=== PATIENT | female | born 1990 | race Caucasian/White ===

== ENCOUNTER 2016-12-15 02:15 | Outpatient (CLI) | payer MEDICAID, OTHER ==
[~2016-12-15] VITALS: Ht 167.6 cm; Wt 69.3 kg
[2016-12-15 02:32] VITALS: Ht 167.6 cm; Wt 69.3 kg
[2016-12-15 02:34] VITALS: BP 111/63; PULSE 65; RESP 18
[2016-12-15] MEDS ORDERED: PREN-93 PO (02:36)
--- NOTE | 2016-12-15 03:05 | PN ---
Date/Time of Note Date/Time of Note DATE: 12/15/16 TIME: 03:03 OB Subjective Subjective Subjective patient ate chile and had some epigastric pain, now resolved OB Objective Objective Objective Nml VS abdomen- gravid, n/t FHT- pos FH Abdomen: WNL OB Assessment/Plan Other Assessment: 26 yo P1 @ 24 wks w/ epigastric pain, now resolved reassuring status Other plan: d/c home f/u MONICA Escalera MD Dec 15, 2016 03:04
--- NOTE | 2016-12-15 03:26 | TRIAGE ---
OB Triage Datetime Report Generated by CPN: 12/15/2016 03:26 Datetime: 12/15/2016 03:00 Labor Evaluation Frequency: IRREGULAR Monitor Mode: External Duration (sec)2399: 90 Quality: Mild Pattern: Normal: <= 5 Contractions in 10 Minutes Resting Tone [place]: Relaxed Heart Rate FHR Baseline Rate: 135 Monitor Mode: External US FHR Baseline Changes: No Baseline Change Variability: Moderate 6-25 bpm Accelerations: 10X10 Decelerations: None Category: Category I Datetime: 12/15/2016 02:38 EGA: 24.5 Datetime: 12/15/2016 02:37 EGA: 24.5 Datetime: 12/15/2016 02:30 Stage of : OB Triage Time of Arrival: 12/15/2016 02:10 Arrived By: Wheelchair Arrived From: Home Chief Complaint: ABDONINAL APIN Movement: Present Contractions: Denies/Absent Rupture of Membranes: Denies Vaginal Bleeding: None Vaginal Discharge: Denies Recent Sexual Intercouse: Denies Abdominal Trauma: Not Applicable Patient Complaints: None Time Provider Notified: 12/15/2016 02:53 Provider Notified: DR VAUGHN Initial Plan: CALL MD Boaz Maternal Assessment Level of Consciousness: Fully Conscious DTR's/Clonus: DTRs 2+; No Clonus Headache: Denies Blurred Vision: No Respiratory Effort: Unlabored; Regular Rhythm; Equal Expansion Breath Sounds, Left: Clear and Equal Breath Sounds, Right: Clear and Equal Nausea/Vomiting: Denies RUQ Epigastric Pain: Denies Lower Extremities Edema: None Degree: None Upper Extremities Edema: None Degree: None Facial Edema: None Temperature Route: Oral Fall Risk Assessment History of Falling: (0) No Secondary Diagnosis: (0) No Ambulatory Aid: (0) Bedrest/Nurse Assist IV Therapy: (0) No Gait: (0) Normal/Bedrest/Immobile Mental Status: (0) Oriented to Own Ability Fall Score: 0 Fall Risk Score Definition: No Risk: No action required Monitor Mode: External Monitor Mode: External US Pain Assessment Pain Presence: Intermittent
== END 2016-12-15 03:13 | disposition home or self-care (01) ==
LOC: OBT 02:15 → L-D 02:30 → OBT 03:13
PROVIDERS: ATTEND Obstetrics & Gynecology
DX: O26.892 Other specified pregnancy related conditions, second trimester (principal); R10.13 Epigastric pain; Z3A.24 24 weeks gestation of pregnancy
CPT/HCPCS: G0463

== ENCOUNTER 2017-04-04 10:16 | Inpatient (IN) | payer MEDICAID, OTHER ==
[~2017-04-04] VITALS: Ht 167.6 cm; Wt 75.6 kg
[~2017-04-04 10:16] MED LIST: PREN-93 PO
[2017-04-04 10:29] VITALS: BP 116/56; PULSE 69; RESP 18; Ht 167.6 cm; Wt 75.6 kg
--- NOTE | 2017-04-04 11:27 | RADRPT ---
PROCEDURE: Obstetrical ultrasound for biophysical profile CLINICAL INDICATION: Biophysical profile. . TECHNIQUE: Obstetrical ultrasound of the uterus for biophysical profile. Transabdominal views are obtained. COMPARISON: None FINDINGS: Single intrauterine gestation. Presentation: Cephalic. Placenta: Anterior. No evidence of placental abruption. No evidence of placenta previa. breathing movement = 2/2 tone = 2/2 motion = 2/2 LATRELL = 2/2 LATRELL = 6.3 cm heart rate: 129 beats per minute IMPRESSION: Single intrauterine gestation. Biophysical profile 03/27 Low normal amniotic fluid index. RPTAT: AADD .Marek Calhoun MD, MD Date Time Electronically viewed and signed by .Marek Calhoun MD, on 04/04/2017 11:26 .B/
--- NOTE | 2017-04-04 13:30 | TRIAGE ---
OB Triage Datetime Report Generated by CPN: 04/04/2017 13:30 Datetime: 04/04/2017 12:04 Vaginal Exam Dilatation (cms): 2.0 Effacement (%): 50 Station: -3 Exam By: KHEMANI Vaginal Bleeding: None Cervix, Consistency: Moderate Cervix, Position: Posterior Presentation 'A': Cephalic Datetime: 04/04/2017 12:00 Labor Evaluation Monitor Mode: External Heart Rate Monitor Mode: External US Datetime: 04/04/2017 10:52 Vaginal Exam Dilatation (cms): 2.0 Effacement (%): 50 Station: -2 Exam By: henrry Vaginal Bleeding: None Cervix, Consistency: Moderate Cervix, Position: Posterior Datetime: 04/04/2017 10:26 Assessment Type: Triage Maternal Assessment Level of Consciousness: Fully Conscious DTR's/Clonus: DTRs 2+; No Clonus Headache: Denies Blurred Vision: No Respiratory Effort: Unlabored; Regular Rhythm; Equal Expansion Breath Sounds, Left: Clear and Equal Breath Sounds, Right: Clear and Equal Nausea/Vomiting: Denies RUQ Epigastric Pain: Denies Lower Extremities Edema: None Degree: None Upper Extremities Edema: None Degree: None Facial Edema: None Fall Risk Assessment History of Falling: (0) No Secondary Diagnosis: (0) No Ambulatory Aid: (0) Bedrest/Nurse Assist IV Therapy: (0) No Gait: (0) Normal/Bedrest/Immobile Mental Status: (0) Oriented to Own Ability Fall Score: 0 Fall Risk Score Definition: No Risk: No action required Datetime: 04/04/2017 10:21 Time of Arrival: 04/04/2017 10:10 EGA: 40.3 Arrived By: Ambulatory Arrived From: Home Chief Complaint: PT HERE C/O SPOTTING Movement: Present Contractions: Denies/Absent Rupture of Membranes: Denies Vaginal Discharge: Denies Recent Sexual Intercouse: Denies Abdominal Trauma: Not Applicable Patient Complaints: None Time Provider Notified: 04/04/2017 10:35 Provider Notified: ARDALAN Initial Plan: SVE, EFM, ambulate Datetime: 04/04/2017 10:20 Labor Evaluation Monitor Mode: External Heart Rate Monitor Mode: External US Datetime: 12/15/2016 02:38 EGA: 24.5 Datetime: 12/15/2016 02:37 EGA: 24.5 Datetime: 12/15/2016 02:30 Chief Complaint: PT C/O UPPER ABDOMINAL PAIN THAT STARTED WHEN SHE ATE SOMETHING SPICY @ 1900, PT STATES SHE NO LONG FEELS ANY DISCOMFORT Fall Score: 0 Fall Risk Score Definition: No Risk: No action required
[2017-04-04] MEDS ORDERED: LACTATED RINGER'S 1,000 ML IV PRN (14:27)
[2017-04-04] MEDS ORDERED: IBUPROFEN 600 MG TAB PO PRN (14:30)
[2017-04-04] MEDS ORDERED: MISOPROSTOL 200 MCG TAB PR PRN (14:30)
[2017-04-04] MEDS ORDERED: METHYLERGONOVINE 0.2 MG INJ IM PRN (14:30)
[2017-04-04] MEDS ORDERED: OXYTOCIN 30 UNITS/LR 500 ML IV SCH ×3 (14:30)
[2017-04-04] MEDS ORDERED: LIDOCAINE 1% (MPF) 30 ML INJ INJ PRN (14:30)
[2017-04-04] MEDS ORDERED: BUTORPHANOL 2 MG INJ IV PRN (14:30)
[2017-04-04] MEDS ORDERED: OXYTOCIN 30 UNITS/LR 500 ML IV PRN (14:30)
[2017-04-04] MEDS ORDERED: AMPICILLIN 2 GM/NS (PMX) 100 ML IV ONE (14:30)
[2017-04-04] MEDS ORDERED: CARBOPROST 250 MCG INJ IM PRN (14:30)
[2017-04-04] MEDS: LACTATED RINGER'S 1,000 ML IV SCH ×2 (14:49→22:42)
[2017-04-04 15:00] LABS: BASOPHILS % 0.3 % (0.0-2.0); EOSINOPHILS % 0.3 % (0.0-7.0); HEMATOCRIT 39.2 % (37.0-47.0); HEMOGLOBIN 13.5 g/dl (12.0-16.0); LYMPHOCYTES # 1.2 10^3/ul (0.8-2.9); LYMPHOCYTES % 11.6 % (15.0-51.0); MEAN CORPUSCULAR HEMOGLOBIN 32.3 pg (29.0-33.0); MEAN CORPUSCULAR HGB CONC 34.4 g/dl (32.0-37.0); MEAN CORPUSCULAR VOLUME 93.8 fl (82.0-101.0); MEAN PLATELET VOLUME 10.6 fl (7.4-10.4); MONOCYTE # 0.6 10^3/ul (0.3-0.9); MONOCYTES % 6.2 % (0.0-11.0); NEUTROPHILS % 81.4 % (39.0-77.0); PLATELET COUNT 159 10^3/UL (140-415); RED BLOOD COUNT 4.18 10^6/ul (4.20-5.40); RED CELL DISTRIBUTION WIDTH 12.9 % (11.5-14.5); WHITE BLOOD COUNT 10.1 10^3/ul (4.8-10.8)
[2017-04-04 15:20] LABS: INR 0.97; PROTIME 12.9 Sec (12.2-14.2)
[2017-04-04 15:21] LABS: PARTIAL THROMBOPLASTIN TIME 27.7 Sec (25.0-35.0)
[2017-04-04] MEDS: AMPICILLIN 1 GM/NS (PMX) 50 ML IV SCH ×2 (17:57→21:44)
--- NOTE | 2017-04-04 22:44 | HP ---
Date/Time of Note Date/Time of Note DATE: 04/04/17 TIME: 22:39 OB - History Hx of Present Free Text/Dictation April 04, 2017 : 2 Para: 1 Therapeutic : 0 Care: Good Care Obstetrical Complications: None Medical Complications: None Other Concerns: 26-year-old G1 2 P1 with IUP at 40+ weeks, postdates presented due to feeling uterine contractions. She was noted to has a favourable cerivx.3/50/-2 Her LATRELL was borderline 6.3. Discussed with the patient regarding induction versus expectant management with repeat LATRELL after 24 hours hydration tomorrow and proceed with induction at 41 week. Patient desires to proceed with induction now Patient denied any vaginal bleeding, leaking of fluid or decreased movement. Her NST was category 1 Past Family/Social History * Past Medical, Surgical, Family and Obstetric Histories reviewed from chart. Blood Type: O+ Rubella: not immune RPR/VDRL: Negative GBS Status: Negative HBsAG: Negative OB Admission Exam Vital Signs Vital Signs Vital Signs Date Time Temp Pulse Resp B/P Pulse Ox O2 Delivery O2 Flow Rate FiO2 04/04/17 10:29 98.5 69 18 116/56 96 Room Air Physical Exam HEENT: WNL Heart: Rhythm Normal Lungs: Clear Abdomen: WNL Extremities: Normal Reflexes: Normal Cervical Dilatation: 1cm Effacement: 0% Heart Rate: 130's Accelerations: Accelerations Present Decelerations: Variable Decelerations Contractions on Admission: 6-10 Minutes Apart Intensity: Moderate Last 72 hours Lab Results CBC & BMP 04/04/17 14:41 OB Assessment/Plan Other Assessment: IUP at 40 weeks + Postdates Borderline low LATRELL Early labor. Discussed regarding admission and labor augmentation due to borderline low LATRELL. Desired to proceed. Risks and benefits discussed. Will admit Start pitocin Anticipate Follow up with labor curve WALDEMAR CLARK MD Apr 04, 2017 22:44
[2017-04-05] MEDS: AMPICILLIN 1 GM/NS (PMX) 50 ML IV SCH (02:00)
--- NOTE | 2017-04-05 02:33 | LDN ---
Date/Time of Note Date/Time of Note DATE: 04/05/17 TIME: 02:30 Delivery Summary Called for delivery due to marternal urge to push. Patient has been on pitocin. noted to progressed rapidly. Placenta Delivered: Spontaneously Meconium: none Perineal laceration: 1 Laceration repair: First-degree perineal and left labial laceration that repaired using 3-0 chromic Anesthesia type: None Estimated blood loss: 200 Sponge & Needle done & correct: Yes All needle counts correct: Yes Any foreign bodies felt in the: No Problems: Delivery Information Sex Infant Sex: male Apgars 1 Minute: 9 5 Minute: 9 Suctioning Nose & mouth suctioned at beth: Yes Delee suction performed: Yes Umbilical Cord Cord presentations: no nuchal cord Cord Blood was obtained: Yes WALDEMAR CLARK MD Apr 05, 2017 02:33
[2017-04-05] MEDS ORDERED: morphine 2 MG INJ IV PRN (03:00)
[2017-04-05] MEDS ORDERED: METHYLERGONOVINE 0.2 MG INJ IM PRN (03:00)
[2017-04-05] MEDS ORDERED: ZOLPIDEM 5 MG TAB PO PRN (03:00)
[2017-04-05] MEDS ORDERED: MISOPROSTOL 200 MCG TAB PR PRN (03:00)
[2017-04-05] MEDS ORDERED: OXYTOCIN 30 UNITS/LR 500 ML IV PRN (03:00)
[2017-04-05] MEDS ORDERED: CARBOPROST 250 MCG INJ IM PRN (03:00)
[2017-04-05] MEDS ORDERED: ONDANSETRON 4 MG INJ IV PRN (03:00)
[2017-04-05] MEDS ORDERED: DIPHENHYDRAMINE 25 MG CAP PO PRN (03:00)
[2017-04-05] MEDS ORDERED: LANOLIN 7 GM TUBE TOP PRN (03:00)
[2017-04-05] MEDS ORDERED: HYDROCODONE/APAP (5/325) TAB PO PRN (03:00)
[2017-04-05] MEDS ORDERED: ACETAMINOPHEN 325 MG TAB PO PRN (03:00)
[2017-04-05] MEDS ORDERED: WITCH HAZEL/GLYCERIN PAD PR PRN (03:00)
[2017-04-05 03:15] VITALS: BP 110/57; PULSE 54; RESP 18
[2017-04-05] MEDS: IBUPROFEN 600 MG TAB PO SCH ×5 (03:42→23:36)
[2017-04-05] MEDS: LACTATED RINGER'S 1,000 ML IV* SCH ×3 (05:57→15:12)
[2017-04-05 08:20] VITALS: BP 105/57; PULSE 64; RESP 16
[2017-04-05] MEDS: SENNA/DOCUSATE NA (8.6MG/50MG) TAB PO SCH ×2 (09:48→21:12)
[2017-04-05 12:20] VITALS: BP 109/60; PULSE 58; RESP 18
--- NOTE | 2017-04-05 12:54 | QN ---
Documentation Comment doing well vss abd soft d/c home next am DEBBIE AVALOS MD Apr 05, 2017 12:54
--- NOTE | 2017-04-05 12:55 | DS ---
Date/Time of Note Date/Time of Note DATE: 04/05/17 TIME: 12:54 Discharge Summary Admission/Discharge Info Admit Date/Time Apr 04, 2017 at 13:56 Discharge Date/Time Discharge Diagnosis term preg. in active labor Patient Condition: Good Hospital Course unremarkable Home Meds Reported Medications Vit No.124/Iron/FA ( Vitamin Tablet) 1 Each Tablet, 1 EACH PO, TAB 12/15/16 Primary Care Provider Care Physician No Primary Pending Labs Laboratory Tests Test 04/04/17 14:41 White Blood Count 10.110^3/ul (4.8-10.8) Red Blood Count 4.1810^6/ul (4.20-5.40) Hemoglobin 13.5g/dl (12.0-16.0) Hematocrit 39.2% (37.0-47.0) Mean Corpuscular Volume 93.8fl (82.0-101.0) Mean Corpuscular Hemoglobin 32.3pg (29.0-33.0) Mean Corpuscular Hemoglobin Concent 34.4g/dl (32.0-37.0) Red Cell Distribution Width 12.9% (11.5-14.5) Platelet Count 04870^3/UL (140-415) Mean Platelet Volume 10.6fl (7.4-10.4) Neutrophils % 81.4% (39.0-77.0) Lymphocytes % 11.6% (15.0-51.0) Monocytes % 6.2% (0.0-11.0) Eosinophils % 0.3% (0.0-7.0) Basophils % 0.3% (0.0-2.0) Nucleated Red Blood Cells % 0.0/100WBC (0.0-0.0) Neutrophils # (Manual) 8.210^3/ul (1.7-7.5) Lymphocytes # 1.210^3/ul (0.8-2.9) Monocytes # 0.610^3/ul (0.3-0.9) Eosinophils # 0.010^3/ul (0.0-0.5) Basophils # 0.010^3/ul (0.0-0.1) Nucleated Red Blood Cells # 0.010^3/ul (0.0-0.0) Prothrombin Time 12.9Sec (12.2-14.2) Prothrombin Time Ratio 1.0 INR International Normalized Ratio 0.97 Activated Partial Thromboplast Time 27.7Sec (25.0-35.0) Hepatitis B Surface Antigen NEGATIVE (NEGATIVE) DEBBIE AVALOS MD Apr 05, 2017 12:55
[2017-04-05 16:17] VITALS: BP 107/53; PULSE 70; RESP 18
[2017-04-05 20:00] VITALS: BP 104/80; PULSE 57; RESP 18
[2017-04-06 04:00] VITALS: BP 94/66; PULSE 53; RESP 18
[2017-04-06] MEDS: IBUPROFEN 600 MG TAB PO SCH ×2 (06:45→11:52)
[2017-04-06 08:00] VITALS: BP 106/57; PULSE 56; RESP 16
[2017-04-06] MEDS: SENNA/DOCUSATE NA (8.6MG/50MG) TAB PO SCH (09:39)
[2017-04-06 10:48] LABS: HEMATOCRIT 32.6 % (37.0-47.0); HEMOGLOBIN 10.9 g/dl (12.0-16.0)
[2017-04-07] MEDS ORDERED: DIPHTH/TET/ACEL PERTUSS (ADULT) 0.5 ML VIAL IM* ONE (09:00)
[2017-04-07] MEDS ORDERED: MEASLES,MUMPS,RUBELLA VACCINE INJ SC* ONE (09:00)
[2017-04-07] MEDS ORDERED: VARICELLA VACCINE LIVE/PF 1,350 UNIT/0.5 ML ML SC* ONE (09:00)
== END 2017-04-06 15:50 | disposition hospice, home (50) | DRG 775 ==
LOC: OBT 10:16 → L-D 10:17 → OBT 13:55 → L-D 13:56 → PP1 04-05 02:55
PROVIDERS: ADMIT Obstetrics & Gynecology; ATTEND Obstetrics & Gynecology
PROC: 10E0XZZ Delivery of Products of Conception, External Approach (ICD-10-PCS; principal; 2017-04-05)
PROC: 0HQ9XZZ Repair Perineum Skin, External Approach (ICD-10-PCS; 2017-04-05)
DX: O48.0 Post-term pregnancy (principal); Z37.1 Single stillbirth; O70.0 First degree perineal laceration during delivery; Z3A.40 40 weeks gestation of pregnancy
CPT/HCPCS: 76818; 85014; 85018; 85025; 85610; 85730; 86592; 86900; 86901; 87340; G0463; J0290; J0595; J2590; J7120